=== PATIENT | male | born 1990 | race Hispanic/Latino ===

== ENCOUNTER 2018-10-04 16:38 | Emergency (ER) | payer OTHER, SELFPAY ==
[2018-10-04 17:45] LABS: BASOPHILS % (AUTO) 0.7 % (0.0-5.0); EOSINOPHILS % (AUTO) 0.2 % (0.0-8.0); HEMATOCRIT 43.3 % (42-54); LYMPHOCYTES % (AUTO) 15.7 % (21.0-51.0); MEAN CORPUSCULAR HEMOGLOBIN 31.3 pg (27.0-33.0); MEAN CORPUSCULAR HGB CONC 35.4 g/dL (32.0-36.0); MEAN CORPUSCULAR VOLUME 88.5 fL (79-99); MONOCYTES % (AUTO) 3.2 % (3.0-13.0); NEUTROPHILS % (AUTO) 80.2 % (40.0-77.0); PLATELET COUNT (AUTO) 280 K/uL (130-400); RED CELL DISTRIBUTION WIDTH 12.3 % (11.0-15.5); WHITE BLOOD COUNT (AUTO) 10.6 K/uL (4.8-10.8)
[2018-10-04 18:19] LABS: POTASSIUM 3.9 mmol/L (3.5-5.1)
[2018-10-04 18:24] LABS: ALBUMIN 4.7 g/dL (3.5-5.0); BILIRUBIN,DIRECT 0.1 mg/dL (0.0-0.3); BILIRUBIN,TOTAL 0.5 mg/dL (0.2-1.0); TOTAL PROTEIN, SERUM 9.7 g/dL (6.0-8.3)
[2018-10-04] MEDS ORDERED: CLONIDINE HCL 0.1 MG TABLET ONE (19:00)
== END 2018-10-04 19:37 | disposition home or self-care (01) ==
LOC: EDH 16:38
DX: I10 Essential (primary) hypertension (principal); T46 Poisoning by, adverse effect of and underdosing of agents primarily affecting the cardiovascular system; Y92.89 Other specified places as the place of occurrence of the external cause; G89.29 Other chronic pain; M54.5 Low back pain; F11.93 Opioid use, unspecified with withdrawal
CPT/HCPCS: 36415; 80048; 80076; 85025